=== PATIENT | male | born 1995 | race Caucasian/White ===

== ENCOUNTER 2019-08-20 12:43 | Emergency (ER) | payer SELFPAY ==
[~2019-08-20] VITALS: Ht 185.4 cm; Wt 81.6 kg
[2019-08-20 12:50] VITALS: BP_SYST 125
--- NOTE | 2019-08-20 12:50 | NUR ---
Patient to ER bed 4 to gown for evaluation. Side rails up.
--- NOTE | 2019-08-20 13:05 | NUR ---
pt bib via BLS s/p fall. Pt reports left jaw pain. He did not loose consiousness. A bump is visible over the upper lip towards the left side. Pt is rambling and stating that he needs to "call the [employer] [place] people are in danger". Minimal hx was obtained from the pt.
--- NOTE | 2019-08-20 13:13 | NUR ---
ER at bedside examining patient.
--- NOTE | 2019-08-20 13:30 | NUR ---
pt became agressive and ripped his monitor and BP cuff off. He conitnues to ramble and is pacing around the room. Security at the bedside.
--- NOTE | 2019-08-20 13:38 | NUR ---
medicated the pt w/ Ativan per MD order.
[2019-08-20] MEDS ORDERED: LORazepam 2 MG/ML VIAL IM ONE (13:45)
--- NOTE | 2019-08-20 14:25 | NUR ---
[facility].
[2019-08-20 14:45] VITALS: BP_SYST 125
--- NOTE | 2019-08-20 15:15 | NUR ---
Patient given written and verbal discharge instructions and verbalizes understanding. ER MD discussed with patient the results and treatment provided. Patient in stable condition. ID arm band removed. Patient educated on pain management and to follow up with PMD. Pain Scale 0/10.Opportunity for questions provided and answered. Medication side effect fact sheet provided.
== END 2019-08-20 15:15 | disposition home or self-care (01) ==
LOC: SED 12:43
DX: M62.838 Other muscle spasm (principal); R68.84 Jaw pain; F17.210 Nicotine dependence, cigarettes, uncomplicated; Z71.6 Tobacco abuse counseling; Z59.0 Homelessness
CPT/HCPCS: 70486; 96372; 99284; J2060